=== PATIENT | male | born 1975 | race African-American/Black ===

== ENCOUNTER 2021-05-26 10:03 | Inpatient (IN) | payer OTHER ==
[~2021-05-26] VITALS: Ht 190.5 cm; Wt 142.9 kg
[2021-05-26 10:06] VITALS: BP 141/93
[2021-05-26 10:22] LABS: ABSOLUTE NEUTROPHILS 12.2 thou/uL (1.4-8.2); BASOPHILS 0.5 % (0.0-2.0); EOSINOPHILS 0.7 % (0.0-3.0); HEMATOCRIT 47.4 % (42.0-52.0); HEMOGLOBIN 15.6 gm/dL (14.0-18.0); LYMPHOCYTES 18.6 % (24.0-44.0); MCH 29.5 pg (26.0-34.0); MCV 89.4 fL (80.0-100.0); MONOCYTES 8.3 % (1.0-8.0); PLATELET COUNT 242 thou/uL (150-400); POLYS 71.9 % (36.0-66.0); RDW 14.5 % (10.5-14.5); WBC 16.9 thou/uL (4.0-11.0)
[2021-05-26 10:23] LABS: CALCIUM 9.5 mg/dL (8.5-10.1); CREATININE 1.1 mg/dL (0.7-1.3)
[2021-05-26 10:40] LABS: TOTAL BILIRUBIN 2.6 mg/dL (0.2-1.0); TOTAL PROTEIN 8.3 g/dL (6.4-8.2)
[2021-05-26 11:52] LABS: URINE BLOOD 3+ (Negative); URINE CLARITY SL CLOUDY; URINE COLOR YELLOW; URINE GLUCOSE-RANDOM* NEGATIVE (Negative); URINE KETONES NEGATIVE (Negative); URINE LEUKOCYTES-REFLEX NEGATIVE (Negative); URINE NITRITE-REFLEX NEGATIVE (Negative); URINE PROTEIN (DIPSTICK) TRACE (Negative); URINE SPECIFIC GRAVITY 1.015 (1.005-1.035); URINE UROBILINOGEN 0.2 E.U./dl (0.2-1.0)
[2021-05-26 11:59] LABS: ICTOTEST (BILI CONFIRMATORY) Negative (Negative); URINE BILIRUBIN NEGATIVE (Negative)
[2021-05-26 12:04] LABS: SQUAMOUS None Seen /LPF (0-3)
[2021-05-26 12:05] LABS: BACTERIA-REFLEX 1-9 Few /HPF (None Seen); CASTS None Seen /LPF (None Seen); CRYSTALS None Seen /LPF (None Seen); URINE RBC 1-2 Rare /HPF (NONE SEEN); URINE WBC-REFLEX 0-5 Rare /HPF (0-5)
[2021-05-26 13:16] VITALS: BP 122/77
[2021-05-26 16:42] LABS: DIRECT BILIRUBIN 0.5 mg/dL (<0.1-0.2); TOTAL BILIRUBIN 2.6 mg/dL (0.2-1.0)
[2021-05-26 19:23] VITALS: BP 106/54
[2021-05-27 05:14] LABS: MCH 29.9 pg (26.0-34.0); MCV 90.6 fL (80.0-100.0); RBC 4.41 mil/uL (4.50-6.00); RDW 14.7 % (10.5-14.5); WBC 12.2 thou/uL (4.0-11.0)
[2021-05-27 05:20] LABS: CALCIUM 8.3 mg/dL (8.5-10.1); CREATININE 1.1 mg/dL (0.7-1.3); MAGNESIUM 2.3 mg/dL (1.8-2.4); POTASSIUM 3.6 mmol/L (3.5-5.1)
[2021-05-27 05:23] LABS: HEMOGLOBIN 13.2 gm/dL (14.0-18.0)
--- NOTE | 2021-05-27 07:09 | NUR ---
Pt. rested quietly at intervals during the night when checked on during frequent rounds. Pain med given (see emar) for c/o abdominal pain with some relief noted. No c/o nausea.
[2021-05-27 08:06] VITALS: BP 122/79
--- NOTE | 2021-05-27 09:26 | NUR ---
Assumed care of pt at 0700. Pt a&ox4. Pt states pain is better today. IVF and IV antibiotics infusing. RA. Call light within reach. Will continue to monitor.
[2021-05-27 16:23] VITALS: BP 135/85
--- NOTE | 2021-05-28 03:48 | NUR ---
Pt. rested quietly during the night when checked on during frequent rounds. He offers no c/o pain. Up ad lupe in the room.
[2021-05-28 05:59] LABS: HEMATOCRIT 39.4 % (42.0-52.0); HEMOGLOBIN 12.7 gm/dL (14.0-18.0); MCH 29.2 pg (26.0-34.0); MCHC 32.3 g/dL (28.0-37.0); MCV 90.4 fL (80.0-100.0); RBC 4.36 mil/uL (4.50-6.00); RDW 14.4 % (10.5-14.5)
[2021-05-28 06:36] LABS: CALCIUM 8.4 mg/dL (8.5-10.1); DIRECT BILIRUBIN 0.2 mg/dL (<0.1-0.2); MAGNESIUM 2.6 mg/dL (1.8-2.4); POTASSIUM 3.8 mmol/L (3.5-5.1)
[2021-05-28 07:30] VITALS: BP 131/94
[2021-05-28] MEDS ORDERED: AMOX TR-K CLV1 EAC4 PO (14:50)
[2021-05-28 15:07] VITALS: BP 131/94
== END 2021-05-28 15:51 | disposition home or self-care (01) | DRG 872 ==
LOC: ER 10:03 → EROBS 12:10 → 4S 12:10
PROVIDERS: Emergency Medicine; ADMIT Internal Medicine; ATTEND Internal Medicine
DX: A41.9 Sepsis, unspecified organism (principal); K57.92 Diverticulitis of intestine, part unspecified, without perforation or abscess without bleeding; K59.00 Constipation, unspecified; E78.5 Hyperlipidemia, unspecified; F17.210 Nicotine dependence, cigarettes, uncomplicated; Z90.49 Acquired absence of other specified parts of digestive tract; Z20.822 Contact with and (suspected) exposure to COVID-19
CPT/HCPCS: 10195